=== PATIENT | male | born 1990 | race Caucasian/White ===

== ENCOUNTER → 2025-04-04 08:41 | Outpatient (BNVA) | payer OTHER, SELFPAY | PROVIDERS: Visit Provider Orthopaedic Surgery | DX: M54.9 Dorsalgia, unspecified (principal); S32.10XA Unspecified fracture of sacrum, initial encounter for closed fracture; M54.89 Other dorsalgia; W19.XXXA Unspecified fall, initial encounter | CPT/HCPCS: 72110; 72220 ==